=== PATIENT | male | born 1930 | race Caucasian/White ===

== ENCOUNTER 2020-12-10 08:28 | Inpatient (IN) | payer OTHER, MEDICAID, SELFPAY ==
[~2020-12-10] VITALS: Ht 182.9 cm; Wt 83.9 kg
[2020-12-10 08:33] VITALS: BP_SYST 121
--- NOTE | 2020-12-10 08:35 | NUR ---
ER DR. SHOEMAKER AT THE BEDSIDE EXAMINING PT
--- NOTE | 2020-12-10 08:41 | NUR ---
PORTABLE X-RAY AT THE BEDSIDE
--- NOTE | 2020-12-10 08:45 | NUR ---
SON AT THE BEDSIDE
--- NOTE | 2020-12-10 08:50 | NUR ---
PT PROVIDED WITH URINAL, STATES UNABLE TO VOID AT THIS TIME. WILL CONTINUE TO ENCOURAGE
--- NOTE | 2020-12-10 08:55 | NUR ---
LAB AT THE BEDSIDE FOR BLOOD DRAW
--- NOTE | 2020-12-10 09:09 | NUR ---
Returned from radiology, back to [facility].
[2020-12-10 09:12] LABS: HEMATOCRIT 28.5 % (36-54); HEMOGLOBIN 8.9 g/dL (14.0-18.0); MEAN CORPUSCULAR HEMOGLOBIN 28 pg (27-31); MEAN CORPUSCULAR HGB CONC 31 % (32-36); MEAN CORPUSCULAR VOLUME 89 fL (79.0-98.0); PLATELET COUNT (AUTO) 220 K/uL (130-430); RED BLOOD CELL COUNT(AUTO) 3.22 MIL/uL (4.2-6.2); RED CELL DISTRIBUTION WIDTH 18.4 % (9.0-15.0)
[2020-12-10 09:23] LABS: INR 1.5 (0.80-1.20)
[2020-12-10 09:30] LABS: WHITE BLOOD COUNT (AUTO) 30.6 K/uL (4.8-10.8)
[2020-12-10 09:37] LABS: ALANINE AMINOTRANSFERASE 69 U/L (12-78); ALBUMIN 3.4 g/dL (3.4-4.8); ANION GAP 14 (5-15); ASPARTATE AMINOTRANSFERASE 51 U/L (10-37); CALCIUM 8.8 mg/dL (8.4-11.0); CHLORIDE 104 mmol/L (98-107); CREATININE 3.74 mg/dL (0.55-1.30); GLUCOSE 231 mg/dL (70-99); POTASSIUM 5.6 mmol/L (3.5-5.1); SODIUM SERUM 137 mmol/L (136-145); TOTAL BILIRUBIN 2.9 mg/dL (0.0-1.0); UREA NITROGEN, BLOOD 47 mg/dL (8-21)
[2020-12-10] MEDS ORDERED: [UNRECOGNIZED DRUG - CODE] PO (09:38)
[2020-12-10] MEDS ORDERED: CLOP75TA32 PO (09:38)
[2020-12-10] MEDS ORDERED: FERR324T22 PO (09:38)
[2020-12-10] MEDS ORDERED: APIX2.5T PO (09:38)
[2020-12-10] MEDS ORDERED: METO-542 PO (09:38)
[2020-12-10] MEDS ORDERED: NITSL SL (09:38)
[2020-12-10] MEDS ORDERED: TAMS0.4C96 PO (09:38)
[2020-12-10] MEDS ORDERED: ISOS30TA9 PO (09:38)
[2020-12-10] MEDS ORDERED: FINA5TAB11 PO (09:38)
[2020-12-10] MEDS ORDERED: GABA300T25 PO (09:38)
[2020-12-10] MEDS ORDERED: SITA100T11 PO (09:38)
[2020-12-10] MEDS ORDERED: GLIP5TAB26 PO (09:38)
[2020-12-10 09:39] LABS: ACETONE, SERUM NEGATIVE (NEGATIVE)
[2020-12-10] MEDS ORDERED: NEPH PO (09:39)
--- NOTE | 2020-12-10 09:39 | NUR ---
Medication reconciliation completed with information provided by FAMILY. Any prior medication reconciliation on file was reviewed and corrected.
[2020-12-10] MEDS ORDERED: PIPERACILLIN/TAZO 4.5GM/DEX-IS 100 ML IV SCH (09:45)
[2020-12-10] MEDS ORDERED: VANCOMYCIN HCL 1,000 MG in NS 250 ML IV ONE (10:00)
--- NOTE | 2020-12-10 10:18 | NUR ---
ADMISSION ORDERS RECEIVED FROM DR. LAWSON
[2020-12-10 10:19] LABS: BAND % (MANUAL) 9 % (0-6); BASOPHILS % (MANUAL) 0 % (0-2); EOSINOPHILS % (MANUAL) 0 % (0-7); LYMPHOCYTES % (MANUAL) 0 % (20-46); MONOCYTES % (MANUAL) 1 % (0-11)
--- NOTE | 2020-12-10 11:09 | NUR ---
Patient will be admitted to care of DR. LAWSON. Admitted to TELE unit. Will go to room 119A. Belongings list completed. Complete and up to date summary report printed. SBAR report to be given at bedside with opportunity for questions.
--- NOTE | 2020-12-10 11:38 | NUR ---
ADMISSION NOTE Received patient from ER via gurney. Patient admitted with diagnosis of . Patient is awake, alert, oriented X . Patient oriented to hospital room, call light, toileting, pain management and safety-teach back done. Patient informed that will be nurse and that their room number is . Personal belongings checked and Belongings List documented. Call light within reach.
[2020-12-10 11:41] LABS: BILIRUBIN,URINE 2+ (NEGATIVE); CLARITY/URINE SL CLOUDY (CLEAR); COLOR,URINE ORANGE (YELLOW); GLUCOSE,URINE TRACE (NEGATIVE); KETONES,URINE 1+ (NEGATIVE); LEUKOCYTE ESTERASE ,URINE 2+ (NEGATIVE); NITRITE, URINE POSITIVE (NEGATIVE); PROTEIN URINE 3+ (NEGATIVE)
--- NOTE | 2020-12-10 11:44 | NUR ---
CONSULTATION: REASON FOR CONSULT: SEPSIS CONSULTING PHYSICIAN: YAMEL ORDERED BY: LULU SPOKE WITH JORDAN [phone]
--- NOTE | 2020-12-10 11:46 | NUR ---
CONSULTATION: REASON FOR CONSULT: SEPSIS CONSULTING PHYSICIAN: ELIANA ORDERED BY: LULU SPOKE WITH PING [phone]
[2020-12-10 11:54] LABS: BACTERIA,URINE MODERATE /HPF (None Seen); BLOOD, URINE TRACE (NEGATIVE); MUCUS,URINE 1+ /LPF (None Seen); UROBILINOGEN,URINE >=8 (0.2-1.0); WBC,URINE 20-50 /HPF (0-3)
[2020-12-10 12:00] VITALS: BP_SYST 106
[2020-12-10] MEDS ORDERED: CLOPIDOGREL BISULFATE 75 MG TABLET PO SCH (14:00)
[2020-12-10] MEDS ORDERED: DEXTROSE 50% JECT 50 ML DISP.SYRIN IVP PRN (14:15)
[2020-12-10] MEDS ORDERED: TAMSULOSIN HCL 0.4 MG CAP PO ONE (14:30)
[2020-12-10] MEDS ORDERED: ISOSORBIDE DINITRATE 10 MG TABLET (ISORDIL) PO ONE (14:30)
[2020-12-10] MEDS ORDERED: FINASTERIDE 5 MG TABLET (PROSCAR) PO ONE (14:30)
[2020-12-10] MEDS ORDERED: METOPROLOL SUCCINATE 50 MG TAB.SR.24H (TOPROL XL) PO ONE (14:30)
[2020-12-10] MEDS ORDERED: NEPHROVITE, (FOLIC ACID/VITAMIN B COMP W-C 1 TAB) PO ONE (14:30)
[2020-12-10] MEDS ORDERED: LEVOFLOXACIN IN DEXTROSE 5 % 100 ML IV ONE (15:00)
[2020-12-10 15:36] LABS: TOTAL IRON BIND. CAPACITY 230 ug/dL (250-450)
[2020-12-10 16:00] VITALS: BP_SYST 116
[2020-12-10] MEDS ORDERED: ASPIRIN 81 MG TAB.CHEW PO ONE (17:15)
--- NOTE | 2020-12-10 18:50 | NUR ---
CLOSING NOTES: PATIENT IS AWAKE LAYING DOWN IN BED. PATIENT TOLERATING OXYGEN ON 2L NASAL CANNULA WITH NO DISTRESS NOTED. IV LINE PATENT AND INTACT WITH NO INFILTRATION NOTED. PATIENT STABLE AT THIS TIME. SAFETY, FALL, AND ASPIRATION PRECAUTIONS REMAINED IN PLACE. BED LOCKED IN LOWEST POSITION. WILL ENDORSE PATIENT CARE TO ONCOMING FITTING ROOM CHECKER NURSE.
--- NOTE | 2020-12-10 19:30 | NUR ---
OPENING NOTES: Received report from dayshift nurse. Patient is laying in bed, alert and oriented with family at bedside. He is on 2L NC, tolerating well with unlabored breathing. IV noted on RAC 20 g with dry and intact dressing. Ensured all safety precautions. Bed is locked and in the lowest position with alarm on, call light within reach.
[2020-12-10 20:00] VITALS: BP_SYST 135
[2020-12-10] MEDS ORDERED: glipiZIDE XL 5 MG TAB ( GLUCOTROL XL) PO SCH (21:00)
[2020-12-10] MEDS: CALCIUM 500 MG/TAB PO SCH (22:03)
[2020-12-10] MEDS: FERROUS GLUCONATE 324 MG TABLET PO SCH (22:03)
[2020-12-10] MEDS: GABAPENTIN 300 MG CAPSULE PO SCH (22:03)
[2020-12-10] MEDS: APIXABAN 2.5 MG TABLET PO SCH (22:04)
--- NOTE | 2020-12-10 23:30 | NUR ---
RECEIVED CRITICAL LAB VALUE FOR TROPONIN / PAGED DR. MONROY
[2020-12-11] VITALS: BP_SYST 140
--- NOTE | 2020-12-11 06:15 | NUR ---
DR. LAWSON AT BEDSIDE
[2020-12-11 06:38] LABS: BASOPHILS # (AUTO) 0.1 K/uL (0.0-0.2); BASOPHILS % (AUTO) 0.6 % (0.0-2.0); EOSINOPHILS # (AUTO) 1.1 K/uL (0.0-0.4); EOSINOPHILS % (AUTO) 5.8 % (0.0-4.0); HEMATOCRIT 28.8 % (36-54); HEMOGLOBIN 9.1 g/dL (14.0-18.0); LYMPHOCYTES # (AUTO) 0.6 K/uL (1.0-5.5); MEAN CORPUSCULAR HEMOGLOBIN 28 pg (27-31); MEAN CORPUSCULAR HGB CONC 32 % (32-36); MEAN CORPUSCULAR VOLUME 87 fL (79.0-98.0); MONOCYTES # (AUTO) 0.2 K/uL (0.0-1.0); MONOCYTES % (AUTO) 1.2 % (1.7-9.3); NEUTROPHILS # (AUTO) 17.7 K/uL (1.8-7.7); NEUTROPHILS % (AUTO) 89.4 % (40.0-70.0); PLATELET COUNT (AUTO) 214 K/uL (130-430); WHITE BLOOD COUNT (AUTO) 19.8 K/uL (4.8-10.8)
[2020-12-11 06:51] LABS: ALANINE AMINOTRANSFERASE 50 U/L (12-78); ANION GAP 9 (5-15); ASPARTATE AMINOTRANSFERASE 26 U/L (10-37); CALCIUM 8.8 mg/dL (8.4-11.0); CHLORIDE 103 mmol/L (98-107); CREATININE 2.86 mg/dL (0.55-1.30); GLUCOSE 194 mg/dL (70-99); PHOSPHORUS 3.2 mg/dL (2.7-4.5); POTASSIUM 4.4 mmol/L (3.5-5.1); SODIUM SERUM 141 mmol/L (136-145); UREA NITROGEN, BLOOD 32 mg/dL (8-21)
--- NOTE | 2020-12-11 07:02 | NUR ---
CLOSING NOTES: Patient is laying in bed, alert and oriented with family at bedside. He is on 2L NC, tolerating well with unlabored breathing. IV noted on RAC 20 g with dry and intact dressing, saline locked. Ensured all safety precautions. Bed is locked and in the lowest position with alarm on, call light within reach. all needs were met throughout shift. Will endorse to dayshift nurse.
[2020-12-11 08:00] VITALS: BP_SYST 151
[2020-12-11] MEDS: ISOSORBIDE DINITRATE 10 MG TABLET (ISORDIL) PO SCH (08:50)
[2020-12-11] MEDS: FINASTERIDE 5 MG TABLET (PROSCAR) PO SCH (08:50)
[2020-12-11] MEDS: TAMSULOSIN HCL 0.4 MG CAP PO SCH (08:50)
[2020-12-11] MEDS: CALCIUM 500 MG/TAB PO SCH ×2 (08:50→20:12)
[2020-12-11] MEDS: ASPIRIN 81 MG TABLET(ECOTRIN) PO SCH (08:50)
--- NOTE | 2020-12-11 08:50 | NUR ---
Discussed all medication indication and side effect , lab result,plan of care verbalized understanding.
[2020-12-11] MEDS: GABAPENTIN 300 MG CAPSULE PO SCH ×2 (08:51→20:12)
[2020-12-11] MEDS: NEPHROVITE, (FOLIC ACID/VITAMIN B COMP W-C 1 TAB) PO SCH (08:51)
[2020-12-11] MEDS: METOPROLOL SUCCINATE 50 MG TAB.SR.24H (TOPROL XL) PO SCH (08:51)
[2020-12-11] MEDS: FERROUS GLUCONATE 324 MG TABLET PO SCH ×2 (08:51→20:12)
[2020-12-11] MEDS: APIXABAN 2.5 MG TABLET PO SCH ×2 (08:52→20:13)
--- NOTE | 2020-12-11 10:30 | NUR ---
Ambulate to bathroom using furniture denies any dizziness.
[2020-12-11 12:15] VITALS: BP_SYST 115
[2020-12-11] MEDS: INSULIN REGULAR, HUMAN 100 UNITS/ML, 10 ML VIAL (humuLIN R) SUBCUT PRN ×3 (12:26→20:18)
--- NOTE | 2020-12-11 14:50 | NUR ---
Patient resting in the chair, denies any chest pain.
[2020-12-11 15:28] VITALS: BP_SYST 119
[2020-12-11] MEDS ORDERED: EPOETIN ALFA 10,000 UNITS/ML VIAL SUBCUT SCH (17:00)
--- NOTE | 2020-12-11 17:01 | NUR ---
Blood sugar 271 mg/dl , insulin coverage given, discussed to patient diabetic/renal diet , portion control, verbalized understanding ;patient able to ambulate to bathroom no dizziness, Addendum: 12/11/20 at 1901 by Elo Teresa RN Provided walker at the bedside.
--- NOTE | 2020-12-11 19:32 | NUR ---
OPENING NOTES: Received report from dayshift nurse. Patient is laying in bed, alert and oriented. He is not exhibiting any s/s of distress or discomfort and has unlabored breathing. IV noted on RAC 20 g with dry and intact dressing. Ensured all safety precautions. Bed is locked and in the lowest position with alarm on, call light within reach.
[2020-12-11 20:00] VITALS: BP_SYST 133
[2020-12-12 00:07] VITALS: BP_SYST 127
[2020-12-12 06:49] LABS: EOSINOPHILS # (AUTO) 1.7 K/uL (0.0-0.4); EOSINOPHILS % (AUTO) 15.7 % (0.0-4.0); HEMATOCRIT 27.2 % (36-54); HEMOGLOBIN 8.8 g/dL (14.0-18.0); LYMPHOCYTES # (AUTO) 0.9 K/uL (1.0-5.5); MEAN CORPUSCULAR HEMOGLOBIN 28 pg (27-31); MEAN CORPUSCULAR HGB CONC 32 % (32-36); MEAN CORPUSCULAR VOLUME 87 fL (79.0-98.0); MONOCYTES # (AUTO) 0.2 K/uL (0.0-1.0); MONOCYTES % (AUTO) 1.8 % (1.7-9.3); PLATELET COUNT (AUTO) 222 K/uL (130-430); RED BLOOD CELL COUNT(AUTO) 3.11 MIL/uL (4.2-6.2); WHITE BLOOD COUNT (AUTO) 10.5 K/uL (4.8-10.8)
--- NOTE | 2020-12-12 07:09 | NUR ---
CLOSING NOTES: Patient is laying in bed, alert and oriented with family at bedside. He is on room air, tolerating well with unlabored breathing. Patient did not have any urine output throughout shift. IV on RAC 20 g with dry and intact dressing, saline locked. Ensured all safety precautions. Bed is locked and in the lowest position with alarm on, call light within reach. All needs were met throughout shift. Will endorse to dayshift nurse.
--- NOTE | 2020-12-12 07:13 | NUR ---
CLOSING NOTES: Patient is laying in bed, alert and oriented. He is not exhibiting any s/s of distress or discomfort and has unlabored breathing. IV on RAC 20 g with dry and intact dressing, saline locked. Ensured all safety precautions. Bed is locked and in the lowest position with alarm on, call light within reach. All needs were met throughout shift. Will endorse to dayshift nurse.
[2020-12-12 07:42] LABS: ANION GAP 11 (5-15); CALCIUM 8.6 mg/dL (8.4-11.0); CHLORIDE 104 mmol/L (98-107); CREATININE 3.48 mg/dL (0.55-1.30); GLUCOSE 144 mg/dL (70-99); POTASSIUM 4.5 mmol/L (3.5-5.1); SODIUM SERUM 142 mmol/L (136-145); UREA NITROGEN, BLOOD 49 mg/dL (8-21)
--- NOTE | 2020-12-12 08:00 | NUR ---
initial notes rec patient awake alert with ivl on the r ac intact. no infiltration noted. resp easy and unlabored. no sob noted. denies pain. bed to the lowest position and dial marker rails up and locked. call light within reached. at bedside. will continue to monitor patient.
[2020-12-12 08:21] LABS: BASOPHILS % (AUTO) 0.2 % (0.0-2.0)
[2020-12-12 08:22] LABS: NEUTROPHILS # (AUTO) 7.7 K/uL (1.8-7.7)
[2020-12-12] MEDS: ISOSORBIDE DINITRATE 10 MG TABLET (ISORDIL) PO SCH (08:30)
[2020-12-12] MEDS: CALCIUM 500 MG/TAB PO SCH ×2 (08:31→20:03)
[2020-12-12] MEDS: TAMSULOSIN HCL 0.4 MG CAP PO SCH (08:31)
[2020-12-12] MEDS: FINASTERIDE 5 MG TABLET (PROSCAR) PO SCH (08:31)
[2020-12-12] MEDS: METOPROLOL SUCCINATE 50 MG TAB.SR.24H (TOPROL XL) PO SCH (08:31)
[2020-12-12] MEDS: NEPHROVITE, (FOLIC ACID/VITAMIN B COMP W-C 1 TAB) PO SCH (08:31)
[2020-12-12] MEDS: GABAPENTIN 300 MG CAPSULE PO SCH ×2 (08:32→20:03)
[2020-12-12] MEDS: FERROUS GLUCONATE 324 MG TABLET PO SCH ×2 (08:32→20:03)
[2020-12-12] MEDS: APIXABAN 2.5 MG TABLET PO SCH ×2 (08:32→20:03)
[2020-12-12] MEDS: ASPIRIN 81 MG TABLET(ECOTRIN) PO SCH (08:32)
[2020-12-12 08:37] VITALS: BP_SYST 120
--- NOTE | 2020-12-12 09:10 | NUR ---
Attending Md DR LAWSON was called, RE: CRITICAL LABS. Spoke to Gadiel.
--- NOTE | 2020-12-12 11:27 | NUR ---
INFORMED RIOS ROSS TO CHANGE THE BATTERIES OF THE TELE BOX. PT IS OFF MONITOR.
[2020-12-12 12:05] VITALS: BP_SYST 103
[2020-12-12 12:06] LABS: NEUTROPHILS % (AUTO) 73.3 % (40.0-70.0)
[2020-12-12] MEDS: INSULIN REGULAR, HUMAN 100 UNITS/ML, 10 ML VIAL (humuLIN R) SUBCUT PRN ×2 (14:28→20:06)
[2020-12-12] MEDS ORDERED: LEVOFLOXACIN 250 MG/D5W 50 ML IV SCH (15:00)
[2020-12-12 16:05] VITALS: BP_SYST 103
--- NOTE | 2020-12-12 17:24 | NUR ---
Dietitian Recommendations * Recommend: continue renal, CCHO low carb-45 gm diet * Recommend: add yogurt as a snack to help better meet estimated nutritional needs. LP, RD Please refer to Nutrition F/U for details. Addendum: 12/12/20 at 1725 by Adilson SHANE Amended: Links added.
--- NOTE | 2020-12-12 19:30 | NUR ---
OPENING NOTE Received report from day shift RN. Pt is sitting up in the chair watching TV. Breathing is even and unlabored. No s/s of respiratory distress noted. Fall and safety precautions are in place with call light within reach. Will continue to monitor.
[2020-12-12 20:00] VITALS: BP_SYST 123
[2020-12-13 00:13] VITALS: BP_SYST 131
--- NOTE | 2020-12-13 06:51 | NUR ---
CLOSING NOTE Pt is lying in bed sleeping. Breathing is unlabored and even. No s/s of respiratory distress noted. Fall and safety precautions are in place. All needs met throughout shift. Will continue to monitor until endorsed to day shift RN.
[2020-12-13 07:04] LABS: ALANINE AMINOTRANSFERASE 36 U/L (12-78); ANION GAP 11 (5-15); ASPARTATE AMINOTRANSFERASE 16 U/L (10-37); CHLORIDE 103 mmol/L (98-107); GLUCOSE 176 mg/dL (70-99); PHOSPHORUS 3.9 mg/dL (2.7-4.5); POTASSIUM 4.6 mmol/L (3.5-5.1); SODIUM SERUM 140 mmol/L (136-145); TOTAL BILIRUBIN 0.9 mg/dL (0.0-1.0); UREA NITROGEN, BLOOD 62 mg/dL (8-21)
--- NOTE | 2020-12-13 07:10 | NUR ---
OPENING NOTE Pt resting in bed. Breathing is even and unlabored with no s/s of respiratory distress, bed is in low and locked position, bed alarm on, call light within reach,
[2020-12-13 08:00] VITALS: BP_SYST 119
[2020-12-13 08:17] LABS: HEMATOCRIT 27.5 % (36-54); HEMOGLOBIN 8.7 g/dL (14.0-18.0); MEAN CORPUSCULAR HEMOGLOBIN 28 pg (27-31); MEAN CORPUSCULAR HGB CONC 32 % (32-36); MEAN CORPUSCULAR VOLUME 88 fL (79.0-98.0); PLATELET COUNT (AUTO) 220 K/uL (130-430); RED BLOOD CELL COUNT(AUTO) 3.13 MIL/uL (4.2-6.2); RED CELL DISTRIBUTION WIDTH 17.5 % (9.0-15.0); WHITE BLOOD COUNT (AUTO) 9.5 K/uL (4.8-10.8)
[2020-12-13] MEDS: CALCIUM 500 MG/TAB PO SCH (09:00)
[2020-12-13] MEDS: TAMSULOSIN HCL 0.4 MG CAP PO SCH (09:00)
[2020-12-13] MEDS: METOPROLOL SUCCINATE 50 MG TAB.SR.24H (TOPROL XL) PO SCH (09:00)
[2020-12-13] MEDS: ISOSORBIDE DINITRATE 10 MG TABLET (ISORDIL) PO SCH (09:00)
[2020-12-13] MEDS: ASPIRIN 81 MG TABLET(ECOTRIN) PO SCH (09:00)
[2020-12-13] MEDS: FERROUS GLUCONATE 324 MG TABLET PO SCH (09:00)
[2020-12-13] MEDS: NEPHROVITE, (FOLIC ACID/VITAMIN B COMP W-C 1 TAB) PO SCH (09:00)
[2020-12-13] MEDS: FINASTERIDE 5 MG TABLET (PROSCAR) PO SCH (09:00)
[2020-12-13] MEDS: GABAPENTIN 300 MG CAPSULE PO SCH (09:00)
[2020-12-13] MEDS: APIXABAN 2.5 MG TABLET PO SCH (09:00)
--- NOTE | 2020-12-13 09:17 | NUR ---
critical lab paged dr Farris regarding tropinon 1.385
--- NOTE | 2020-12-13 09:18 | NUR ---
PAGED PAGED TESSA NUNEZ AT [phone] SPOKE WITH TORI.
--- NOTE | 2020-12-13 09:22 | NUR ---
critical lab, spoke with Dr Farris, informed him of patient tropinon level, no new orders received
[2020-12-13 11:41] LABS: BASOPHILS % (MANUAL) 0 % (0-2); EOSINOPHILS % (MANUAL) 12 % (0-7); LYMPHOCYTES % (MANUAL) 14 % (20-46); MONOCYTES % (MANUAL) 3 % (0-11)
[2020-12-13] MEDS: INSULIN REGULAR, HUMAN 100 UNITS/ML, 10 ML VIAL (humuLIN R) SUBCUT PRN (11:46)
--- NOTE | 2020-12-13 13:04 | NUR ---
dialysis dialysis complete, removed 2600L removed, patient in bed, no signs of distress noted, bed in low and locked position call light within reach, bed alarm on
[2020-12-13 13:28] VITALS: BP_SYST 119
[2020-12-13] MEDS ORDERED: LEVO250T58 PO (13:53)
[2020-12-13 15:00] VITALS: BP_SYST 119
--- NOTE | 2020-12-13 15:43 | NUR ---
NURSE NOTE PREPARING PATIENT FOR DISCHARGE, OFFERED TO HELP PATIENT DRESS, PATIENT REFUSED STATED WOULD HELP HIM
--- NOTE | 2020-12-13 15:50 | NUR ---
D/C Patient Patient given medication reconciliation form and D/C instructions. Exit Care provided. Patient verbalized understanding. MD discussed with patient the results and treatment provided. Ambulatory with steady gait for discharge to home. Patient in stable condition, ID band removed. IV catheter removed, intact and dressing applied, no active bleeding. Patient educated on pain management. All belongings sent with patient. Patient taken via wheelchair to awaiting car.
--- NOTE | 2020-12-13 16:00 | NUR ---
CM note: Per dr. Farris, the pt is to be dc home after dialysis, The pt already has appointments to f/u with his md and dishwasher busser tomorrow. Dispo code 01.
== END 2020-12-13 15:50 | disposition home or self-care (01) | DRG 871 ==
LOC: SED 08:28 → STU 10:18
PROVIDERS: ADMIT Internal Medicine; ATTEND Internal Medicine
PROC: 5A1D70Z Performance of Urinary Filtration, Intermittent, Less than 6 Hours Per Day (ICD-10-PCS; principal; 2020-12-10)
PROC: 5A1D70Z Performance of Urinary Filtration, Intermittent, Less than 6 Hours Per Day (ICD-10-PCS; 2020-12-12)
DX: A41.9 Sepsis, unspecified organism (principal); N18.6 End stage renal disease; I21.9 Acute myocardial infarction, unspecified; N39.0 Urinary tract infection, site not specified; I12.0 Hypertensive chronic kidney disease with stage 5 chronic kidney disease or end stage renal disease; D68.59 Other primary thrombophilia; E44.1 Mild protein-calorie malnutrition; I48.0 Paroxysmal atrial fibrillation; Z20.822 Contact with and (suspected) exposure to COVID-19; I25.10 Atherosclerotic heart disease of native coronary artery without angina pectoris; D63.8 Anemia in other chronic diseases classified elsewhere; N40.0 Benign prostatic hyperplasia without lower urinary tract symptoms; E87.5 Hyperkalemia; E11.22 Type 2 diabetes mellitus with diabetic chronic kidney disease; Z79.899 Other long term (current) drug therapy; Z79.01 Long term (current) use of anticoagulants; Z68.25 Body mass index [BMI] 25.0-25.9, adult; Z79.84 Long term (current) use of oral hypoglycemic drugs; Z99.2 Dependence on renal dialysis
CPT/HCPCS: 36415; 70450-TC; 71045; 76376; 80048; 80053; 81000; 82009; 82550; 82962; 83540; 83550; 83605; 84100; 84484; 85007; 85025; 85027; 85610-TC; 85730-TC; 87040-TC; 87081; 87086; 90935; 90937; 93005; 93306; 96365; 96368; 99291; G0378; J0885; J1815; J1956; J2543; J3370; J7050

== ENCOUNTER 2022-09-18 08:46 | Inpatient (IN) | payer OTHER, MEDICAID ==
[~2022-09-18] VITALS: Ht 170.2 cm; Wt 61.2 kg
[~2022-09-18 08:46] MED LIST: APIX2.5T PO; CALC650T29 PO; CLOP75TA32 PO; FERR324T22 PO; FINA5TAB11 PO; GABA300T25 PO; GLIP5TAB26 PO; ISOS30TA9 PO; LEVO250T73 PO; METO-542 PO; NEPH PO; NITSL SL; SITA100T11 PO; TAMS0.4C96 PO
[2022-09-18 09:01] VITALS: BP_SYST 148
[2022-09-18 09:30] LABS: BASOPHILS # (AUTO) 0.3 K/uL (0.0-0.2); BASOPHILS % (AUTO) 1.2 % (0.0-2.0); EOSINOPHILS # (AUTO) 0.2 K/uL (0.0-0.4); EOSINOPHILS % (AUTO) 0.9 % (0.0-4.0); HEMATOCRIT 28.4 % (36-54); HEMOGLOBIN 8.8 g/dL (14.0-18.0); LYMPHOCYTES # (AUTO) 0.8 K/uL (1.0-5.5); LYMPHOCYTES % (AUTO) 3.2 % (20.5-51.5); MEAN CORPUSCULAR HEMOGLOBIN 28 pg (27-31); MEAN CORPUSCULAR HGB CONC 31 % (32-36); MEAN CORPUSCULAR VOLUME 89 fL (79.0-98.0); MONOCYTES # (AUTO) 0.6 K/uL (0.0-1.0); MONOCYTES % (AUTO) 2.4 % (1.7-9.3); NEUTROPHILS # (AUTO) 22.1 K/uL (1.8-7.7); PLATELET COUNT (AUTO) 60 K/uL (130-430); RED BLOOD CELL COUNT(AUTO) 3.19 MIL/uL (4.2-6.2); RED CELL DISTRIBUTION WIDTH 17.7 % (9.0-15.0)
[2022-09-18 09:37] LABS: ANION GAP 11 (5-15); CALCIUM 8.2 mg/dL (8.4-11.0); CHLORIDE 106 mmol/L (98-107); CREATININE 7.18 mg/dL (0.55-1.30); GLUCOSE 102 mg/dL (70-99); UREA NITROGEN, BLOOD 61 mg/dL (8-21)
[2022-09-18 09:44] LABS: ALANINE AMINOTRANSFERASE 20 U/L (12-78); ALBUMIN 2.8 g/dL (3.4-4.8); ASPARTATE AMINOTRANSFERASE 24 U/L (10-37); TOTAL BILIRUBIN 0.7 mg/dL (0.0-1.0)
[2022-09-18] MEDS ORDERED: traMADol HCL HCL 50 MG TABLET (ULTRAM) PO ONE (10:00)
[2022-09-18 11:10] LABS: NEUTROPHILS % (AUTO) 92.3 % (40.0-70.0)
[2022-09-18] MEDS ORDERED: MAGNESIUM SULFATE 50 ML IV PRN (12:45)
[2022-09-18] MEDS ORDERED: DOCUSATE SODIUM 100 MG CAPSULE PO PRN (12:45)
[2022-09-18] MEDS ORDERED: ACETAMINOPHEN 325 MG TABLET PO PRN (12:45)
[2022-09-18] MEDS ORDERED: LORazepam 2 MG/ML VIAL IVP PRN (12:45)
[2022-09-18] MEDS ORDERED: DEXTROSE 50% JECT 50 ML DISP.SYRIN IVP PRN (12:45)
[2022-09-18] MEDS ORDERED: POTASSIUM CHLORIDE 20 MEQ TAB.PRT.SR PO PRN (12:45)
[2022-09-18] MEDS ORDERED: MUPIROCIN 2% TOPICAL OINTMENT 22 GM NS PRN (12:45)
[2022-09-18] MEDS ORDERED: NALOXONE HCL 0.4 MG/ML AMP (NARCAN) IVP PRN ×2 (12:45)
[2022-09-18] MEDS ORDERED: MORPHINE 2 MG/ML INJ. SYRINGE IVP PRN ×2 (12:45)
[2022-09-18] MEDS ORDERED: ONDANSETRON HCL 4 MG/2 ML VIAL IVP PRN (12:45)
[2022-09-18] MEDS ORDERED: BETA15OI3 TP (12:58)
[2022-09-18] MEDS ORDERED: DEXTROSE 50% JECT 50 ML DISP.SYRIN IVP ONE (14:00)
[2022-09-18] MEDS ORDERED: VANCOMYCIN HCL 1000 MG/VIAL IV ONE (17:46)
[2022-09-18] MEDS ORDERED: INSULIN Lispro 100 UNITS/ML, 3 ML VIAL (humaLOG) ONE (17:50)
[2022-09-18] MEDS ORDERED: VANCOMYCIN HCL 1,000 MG in NS 250 ML IV ONE (18:00)
[2022-09-18] MEDS: D5W 1,000 ML IV SCH (18:10)
[2022-09-18] MEDS: INSULIN LISPRO SLIDING SCALE 100 UNITS/ML, 3 ML VIAL (humaLOG) SUBCUT PRN ×2 (18:16→22:13)
[2022-09-18 20:45] VITALS: BP_SYST 149
[2022-09-18] MEDS: GABAPENTIN 300 MG CAPSULE PO SCH (21:00)
[2022-09-18] MEDS ORDERED: glipiZIDE XL 5 MG TAB ( GLUCOTROL XL) PO SCH (21:00)
[2022-09-18] MEDS ORDERED: CALCIUM CARBONATE 650 MG TABLET PO SCH (21:00)
[2022-09-18] MEDS ORDERED: GABAPENTIN PO SCH (21:00)
[2022-09-18] MEDS: APIXABAN 2.5 MG TABLET PO SCH (21:00)
[2022-09-18 21:11] VITALS: BP_SYST 127
[2022-09-19] VITALS (8 sets, daily range): BP systolic 76–132
[2022-09-19] MEDS ORDERED: ALBUMIN HUMAN 25% 100 ML IV ONE ×2 (01:20→09:00)
[2022-09-19] MEDS: ZOLPIDEM TARTRATE 5 MG TABLET PO PRN ×2 (03:24→22:09)
[2022-09-19] MEDS: INSULIN LISPRO SLIDING SCALE 100 UNITS/ML, 3 ML VIAL (humaLOG) SUBCUT PRN ×3 (04:56→20:41)
[2022-09-19] MEDS: APIXABAN 2.5 MG TABLET PO SCH ×2 (07:18→20:43)
[2022-09-19 07:54] LABS: ANION GAP 8 (5-15); CALCIUM 8.2 mg/dL (8.4-11.0); CHLORIDE 102 mmol/L (98-107); CREATININE 4.98 mg/dL (0.55-1.30); GLUCOSE 115 mg/dL (70-99); UREA NITROGEN, BLOOD 42 mg/dL (8-21)
[2022-09-19 07:56] LABS: ALANINE AMINOTRANSFERASE 25 U/L (12-78); ALBUMIN 3.2 g/dL (3.4-4.8); ASPARTATE AMINOTRANSFERASE 27 U/L (10-37); TOTAL BILIRUBIN 0.8 mg/dL (0.0-1.0)
[2022-09-19 08:15] LABS: BASOPHILS # (AUTO) 0.3 K/uL (0.0-0.2); BASOPHILS % (AUTO) 1.5 % (0.0-2.0); EOSINOPHILS # (AUTO) 0.4 K/uL (0.0-0.4); EOSINOPHILS % (AUTO) 2.6 % (0.0-4.0); HEMOGLOBIN 8.1 g/dL (14.0-18.0); LYMPHOCYTES # (AUTO) 0.7 K/uL (1.0-5.5); LYMPHOCYTES % (AUTO) 3.8 % (20.5-51.5); MEAN CORPUSCULAR HEMOGLOBIN 28 pg (27-31); MEAN CORPUSCULAR HGB CONC 31 % (32-36); MEAN CORPUSCULAR VOLUME 88 fL (79.0-98.0); MONOCYTES # (AUTO) 0.4 K/uL (0.0-1.0); MONOCYTES % (AUTO) 2.4 % (1.7-9.3); NEUTROPHILS # (AUTO) 15.6 K/uL (1.8-7.7); NEUTROPHILS % (AUTO) 89.7 % (40.0-70.0); PLATELET COUNT (AUTO) 57 K/uL (130-430); RED BLOOD CELL COUNT(AUTO) 2.95 MIL/uL (4.2-6.2); RED CELL DISTRIBUTION WIDTH 17.7 % (9.0-15.0); WHITE BLOOD COUNT (AUTO) 17.3 K/uL (4.8-10.8)
[2022-09-19] MEDS: ISOSORBIDE MONONITRATE 30 MG TAB.ER.24H PO SCH (09:00)
[2022-09-19] MEDS ORDERED: ISOSORBIDE DINITRATE PO SCH (09:00)
[2022-09-19] MEDS: METOPROLOL SUCCINATE 50 MG TAB.SR.24H (TOPROL XL) PO SCH (09:00)
[2022-09-19] MEDS ORDERED: NS 250 ML IV ONE (09:00)
[2022-09-19] MEDS: GABAPENTIN 300 MG CAPSULE PO SCH ×2 (09:03→09:07)
[2022-09-19] MEDS: CALCIUM 500 MG/TAB PO SCH (09:07)
[2022-09-19] MEDS: TAMSULOSIN HCL 0.4 MG CAP PO SCH (09:07)
[2022-09-19] MEDS: FLUCONAZOLE 100 MG TABLET (DIFLUCAN) PO SCH (09:07)
[2022-09-19] MEDS: FINASTERIDE 5 MG TABLET (PROSCAR) PO SCH (09:45)
[2022-09-19] MEDS: D5W 1,000 ML IV SCH (13:00)
[2022-09-20 00:25] VITALS: BP_SYST 96
[2022-09-20] MEDS: INSULIN LISPRO SLIDING SCALE 100 UNITS/ML, 3 ML VIAL (humaLOG) SUBCUT PRN ×2 (06:29→22:12)
[2022-09-20 06:51] LABS: BASOPHILS # (AUTO) 0.4 K/uL (0.0-0.2); BASOPHILS % (AUTO) 2.6 % (0.0-2.0); EOSINOPHILS # (AUTO) 0.6 K/uL (0.0-0.4); EOSINOPHILS % (AUTO) 3.4 % (0.0-4.0); HEMATOCRIT 24.1 % (36-54); HEMOGLOBIN 7.5 g/dL (14.0-18.0); LYMPHOCYTES # (AUTO) 0.9 K/uL (1.0-5.5); LYMPHOCYTES % (AUTO) 5.2 % (20.5-51.5); MEAN CORPUSCULAR HEMOGLOBIN 28 pg (27-31); MEAN CORPUSCULAR HGB CONC 31 % (32-36); MEAN CORPUSCULAR VOLUME 89 fL (79.0-98.0); MONOCYTES # (AUTO) 0.4 K/uL (0.0-1.0); MONOCYTES % (AUTO) 2.2 % (1.7-9.3); NEUTROPHILS # (AUTO) 14.9 K/uL (1.8-7.7); NEUTROPHILS % (AUTO) 86.6 % (40.0-70.0); PLATELET COUNT (AUTO) 65 K/uL (130-430); RED BLOOD CELL COUNT(AUTO) 2.71 MIL/uL (4.2-6.2); RED CELL DISTRIBUTION WIDTH 17.4 % (9.0-15.0); WHITE BLOOD COUNT (AUTO) 17.2 K/uL (4.8-10.8)
[2022-09-20 06:57] LABS: INR 1.3 (0.80-1.20); PROTHROMBIN TIME 13.4 SECS (9.5-12.5)
[2022-09-20 07:09] LABS: ANION GAP 6 (5-15); CALCIUM 7.8 mg/dL (8.4-11.0); CHLORIDE 103 mmol/L (98-107); CREATININE 5.97 mg/dL (0.55-1.30); GLUCOSE 192 mg/dL (70-99); UREA NITROGEN, BLOOD 52 mg/dL (8-21); VANCOMYCIN,RANDOM 22.9 ug/mL
[2022-09-20] MEDS: APIXABAN 2.5 MG TABLET PO SCH ×2 (07:31→21:00)
[2022-09-20 08:00] VITALS: BP_SYST 141
[2022-09-20] MEDS: ISOSORBIDE MONONITRATE 30 MG TAB.ER.24H PO SCH (08:48)
[2022-09-20] MEDS: METOPROLOL SUCCINATE 50 MG TAB.SR.24H (TOPROL XL) PO SCH (08:49)
[2022-09-20] MEDS: FLUCONAZOLE 100 MG TABLET (DIFLUCAN) PO SCH (08:55)
[2022-09-20] MEDS: CALCIUM 500 MG/TAB PO SCH (08:55)
[2022-09-20] MEDS: FINASTERIDE 5 MG TABLET (PROSCAR) PO SCH (08:55)
[2022-09-20] MEDS: GABAPENTIN 300 MG CAPSULE PO SCH ×2 (08:55→21:28)
[2022-09-20] MEDS: TAMSULOSIN HCL 0.4 MG CAP PO SCH (08:55)
[2022-09-20] MEDS ORDERED: METOPROLOL SUCCINATE 25 MG TAB.SR.24H (TOPROL XL) PO SCH (09:00)
[2022-09-20 11:32] VITALS: BP_SYST 132
[2022-09-20 15:07] VITALS: BP_SYST 106
[2022-09-20] MEDS ORDERED: ALBUMIN HUMAN 25% 50 ML IV PRN (17:15)
[2022-09-20 20:00] VITALS: BP_SYST 99
[2022-09-21 00:56] VITALS: BP_SYST 113
[2022-09-21] MEDS: APIXABAN 2.5 MG TABLET PO SCH (07:19)
[2022-09-21 08:00] VITALS: BP_SYST 126
[2022-09-21] MEDS: CALCIUM 500 MG/TAB PO SCH (08:51)
[2022-09-21] MEDS: GABAPENTIN 300 MG CAPSULE PO SCH (08:51)
[2022-09-21] MEDS: TAMSULOSIN HCL 0.4 MG CAP PO SCH (08:52)
[2022-09-21] MEDS: FLUCONAZOLE 100 MG TABLET (DIFLUCAN) PO SCH (08:52)
[2022-09-21] MEDS: FINASTERIDE 5 MG TABLET (PROSCAR) PO SCH (08:52)
[2022-09-21 11:22] VITALS: BP_SYST 136
[2022-09-21 15:07] VITALS: BP_SYST 119
[2022-09-21 15:27] VITALS: BP_SYST 120
[2022-09-21 15:36] LABS: HEMATOCRIT 22.6 % (36-54); HEMOGLOBIN 7.1 g/dL (14.0-18.0); MEAN CORPUSCULAR HEMOGLOBIN 28 pg (27-31); MEAN CORPUSCULAR HGB CONC 31 % (32-36); MEAN CORPUSCULAR VOLUME 89 fL (79.0-98.0); PLATELET COUNT (AUTO) 59 K/uL (130-430); RED BLOOD CELL COUNT(AUTO) 2.53 MIL/uL (4.2-6.2); RED CELL DISTRIBUTION WIDTH 17.5 % (9.0-15.0); WHITE BLOOD COUNT (AUTO) 16.1 K/uL (4.8-10.8)
[2022-09-21 15:45] LABS: TOTAL IRON BIND. CAPACITY 131 ug/dL (250-450)
[2022-09-21 15:46] LABS: ANION GAP 6 (5-15); CALCIUM 7.7 mg/dL (8.4-11.0); CHLORIDE 99 mmol/L (98-107); CREATININE 5.63 mg/dL (0.55-1.30); GLUCOSE 308 mg/dL (70-99); UREA NITROGEN, BLOOD 47 mg/dL (8-21); VANCOMYCIN,RANDOM 18.4 ug/mL
[2022-09-21] MEDS: INSULIN LISPRO SLIDING SCALE 100 UNITS/ML, 3 ML VIAL (humaLOG) SUBCUT PRN (16:49)
[2022-09-21 18:06] LABS: RETICULOCYTE COUNT 1.4 % (0.5-1.5)
[2022-09-21 21:24] LABS: BAND % (MANUAL) 6 % (0-6); LYMPHOCYTES % (MANUAL) 5 % (20-46); MONOCYTES % (MANUAL) 4 % (0-11)
[2022-09-21 21:25] LABS: BASOPHILS % (MANUAL) 0 % (0-2); EOSINOPHILS % (MANUAL) 3 % (0-7)
[2022-09-23 11:08] LABS: FOLATE (FOLIC ACID) 4.5 ng/mL (>3.0)
== END 2022-09-21 17:10 | DRG 291 ==
LOC: SED 08:46 → STU 12:05
PROVIDERS: ADMIT General Practice; ATTEND General Practice
PROC: 0W993ZZ Drainage of Right Pleural Cavity, Percutaneous Approach (ICD-10-PCS; principal; 2022-09-18)
PROC: 5A1D70Z Performance of Urinary Filtration, Intermittent, Less than 6 Hours Per Day (ICD-10-PCS; 2022-09-19)
DX: I13.2 Hypertensive heart and chronic kidney disease with heart failure and with stage 5 chronic kidney disease, or end stage renal disease (principal); E43 Unspecified severe protein-calorie malnutrition; I50.43 Acute on chronic combined systolic (congestive) and diastolic (congestive) heart failure; N17.0 Acute kidney failure with tubular necrosis; N18.6 End stage renal disease; D47.1 Chronic myeloproliferative disease; I48.20 Chronic atrial fibrillation, unspecified; E11.649 Type 2 diabetes mellitus with hypoglycemia without coma; E11.42 Type 2 diabetes mellitus with diabetic polyneuropathy; R62.7 Adult failure to thrive; Z20.822 Contact with and (suspected) exposure to COVID-19; D46.9 Myelodysplastic syndrome, unspecified; E11.22 Type 2 diabetes mellitus with diabetic chronic kidney disease; D63.8 Anemia in other chronic diseases classified elsewhere; D69.6 Thrombocytopenia, unspecified; Z99.2 Dependence on renal dialysis; W19.XXXA Unspecified fall, initial encounter; F17.200 Nicotine dependence, unspecified, uncomplicated; Y92.009 Unspecified place in unspecified non-institutional (private) residence as the place of occurrence of the external cause; Z79.02 Long term (current) use of antithrombotics/antiplatelets; Z79.01 Long term (current) use of anticoagulants; Z85.038 Personal history of other malignant neoplasm of large intestine; Z90.49 Acquired absence of other specified parts of digestive tract; Z86.73 Personal history of transient ischemic attack (TIA), and cerebral infarction without residual deficits; Z79.899 Other long term (current) drug therapy; Y93.89 Activity, other specified; Y99.8 Other external cause status; Z68.21 Body mass index [BMI] 21.0-21.9, adult; Z79.84 Long term (current) use of oral hypoglycemic drugs
CPT/HCPCS: 36415; 70450-TC; 71045; 76376; 80048; 80053; 80202; 82272; 82607; 82728; 82746; 82962; 83037; 83540; 83550; 83605; 83735; 83880; 84484; 85007; 85025; 85027; 85044; 85610-TC; 85730-TC; 87081; 90935; 90937; 93005; 96365; 96372; 96375; 97110-GP; 97116-GP; 97163-GP; 97530-GP; 99285; G0378; J3370; J3475; J7030; P9046